=== PATIENT | male | born 1995 | race Two or more races ===

== ENCOUNTER 2021-10-01 19:21 | Emergency (ER) | payer SELFPAY ==
[~2021-10-01] VITALS: Ht 167.6 cm; Wt 75.0 kg
[2021-10-01 20:00] VITALS: BP 141/98
[2021-10-01] MEDS ORDERED: HYDROcodone/APAP 5/325MG 1 TAB TABLET PO ONE (21:00)
--- NOTE | 2021-10-01 21:40 | RAD ---
Exam: Right wrist 3 views INDICATION: Pain TECHNIQUE: Frontal, lateral and oblique views of the right wrist Comparisons: None FINDINGS: There is a fracture through the base of the scaphoid. Soft tissues are unremarkable. Joint spaces are well-maintained. Bone mineralization is normal. IMPRESSION: Minimally displaced fracture through the proximal pole of the scaphoid. Orthopedic consultation is re commended. Electronically signed by: Jaun Baker MD (10/01/2021 9:37 PM) MARÍA
--- NOTE | 2021-10-01 21:46 | RAD ---
Study: XR EXAM OF ANKLE_LEFT 3V Indication: Left ankle pain. Comparison: None. Findings: Mineralization at the tip of the medial malleolus is favored chronic. No acute fracture is identified at the ankle. Osteophytic proliferation at the anterior and posterior margins of the tibial plafond as well as at the dorsum of the talar neck. No osseous coalition. Intact talar dome. Symmetric ankle mortise. Maintained joint spaces. The small ankle joint effusion and/or synovitis. Impression: 1. No acute fracture is identified or traumatic malalignment. 2. Findings at the ankle and dorsum of the talar neck which could be in part related to remote trauma . Correlate for history of prior ankle injury. Electronically signed by: CARLOTA SY MD (10/01/2021 9:44 PM) [facility]
--- NOTE | 2021-10-01 22:31 | PHYS DOC ---
Past Medical History Past Surgical History: No Surgical History (PERI BARRERA APRN) Smoking Status: Never Smoker Alcohol Use: None (PERI BARRERA APRN) General Adult EDM: Chief Complaint: ANKLE PROBLEM HPI: HPI: Patient is a 26 year old male presents with left ankle pain and right wrist pain. Patient states he was playing soccer when a soccer ball pushed his right hand backwards. Patient reports twisting his left ankle. Denies taking anything for pain prior to arrival. Patient is able to bear weight. Range of motion intact but produces pain. Denies medical history. (PERI BARRERA APRN) Review of Systems: Review of Systems: ROS At least 10 ROS systems have been reviewed and are negative except as documented in the HPI. General: Negative except as outlined in HPI above. Skin: Negative except as outlined in HPI above. HEENT: Negative except as outlined in HPI above. Neck: Negative except as outlined in HPI above. Respiratory: Negative except as outlined in HPI above.. Cardiovascular: Negative except as outlined in HPI above. Abdomen: Negative except as outlined in HPI above. : Negative except as outlined in HPI above. Back/MSK: Negative except as outlined in HPI above. Neuro: Negative except as outlined in HPI above. Psych: Negative except as outlined in HPI above. (PERI BARRERA APRN) Heart Score: C/O Chest Pain: No Risk Factors: Risk Factors: DM, Current or recent (<one month) smoker, HTN, HLP, family history of CAD, obesity. Risk Scores: Score 0 - 3: 2.5% MACE over next 6 weeks - Discharge Home Score 4 - 6: 20.3% MACE over next 6 weeks - Admit for Clinical Observation Score 7 - 10: 72.7% MACE over next 6 weeks - Early Invasive Strategies (PERI BARRERA APRN) Current Medications: Current Medications Medications (Trade) Dose Ordered Sig/Jewell Start Time Stop Time Status Last Admin Dose Admin Acetaminophen/ Hydrocodone Bitart (Lortab 5/325) 1 tab 1X ONCE 10/01/21 21:00 10/01/21 21:01 DC 10/01/21 20:57 1 TAB (PERI BARRERA APRN) Allergies: Allergies: Allergies Coded Allergies Type Severity Reaction Last Updated Verified No Known Drug Allergies 10/01/21 No (PERI BARRERA APRN) Physical Exam: PE: Constitutional: Well developed, well nourished, no acute distress, non-toxic appearance. [] HENT: Normocephalic, atraumatic, bilateral external ears normal, oropharynx moist, no oral exudates, nose normal. [] Eyes: PERRLA, EOMI, conjunctiva normal, no discharge. [] Neck: Normal range of motion, no tenderness, supple, no stridor. [] Cardiovascular:Heart rate regular rhythm, no murmur [] Lungs & Thorax: Bilateral breath sounds clear to auscultation [] Abdomen: Bowel sounds normal, soft, no tenderness, no masses, no pulsatile ma sses. [] Skin: Warm, dry, no erythema, no rash. [] Back: No tenderness, no CVA tenderness. [] Extremities: No tenderness, no cyanosis, no clubbing, ROM intact, no edema. [] Neurologic: Alert and oriented X 3, normal motor function, normal sensory function, no focal deficits noted. [] Psychologic: Affect normal, judgement normal, mood normal. [] (PERI BARRERA APRN) Current Patient Data: Vital Signs: Vital Signs Date Time Temp Pulse Resp B/P (MAP) Pulse Ox O2 Delivery O2 Flow Rate FiO2 10/01/21 20:57 18 96 Room Air 10/01/21 20:00 98.2 66 141/98 (112) 98.2 (PERI BARRERA APRN) EKG: EKG: [] (PERI BARRERA APRN) Radiology/Procedures: Radiology/Procedures: []Study: XR EXAM OF ANKLE_LEFT 3V Indication: Left ankle pain. Comparison: None. Findings: Mineralization at the tip of the medial malleolus is favored chronic. No acute fracture is identified at the ankle. Osteophytic proliferation at the anterior and posterior margins of the tibial plafond as well as at the dorsum of the talar neck. No osseous coalition. Intact talar dome. Symmetric ankle mortise. Maintained joint spaces. The small ankle joint effusion and/or synovitis. Impression: 1. No acute fracture is identified or traumatic malalignment. 2. Findings at the ankle and dorsum of the talar neck which could be in part related to remote trauma. Correlate for history of prior ankle injury. Exam: Right wrist 3 views INDICATION: Pain TECHNIQUE: Frontal, lateral and oblique views of the right wrist Comparisons: None FINDINGS: There is a fracture through the base of the scaphoid. Soft tissues are unremarkable. Joint spaces are well-maintained. Bone mineralization is normal. IMPRESSION: Minimally displaced fracture through the proximal pole of the scaphoid. Orthopedic consultation is recommended. Electronically signed by: Jaun Baker MD (10/01/2021 9:37 PM) [facility] (EPRI BARRERA APRN) Course & Med Decision Making: Course & Med Decision Making Pertinent Labs and Imaging studies reviewed. (See chart for details) [] 26-year-old male presents with right wrist and left ankle pain after injuring himself playing soccer. Pain treated in the emergency room. Ankle x-ray is unremarkable. Imaging showed Minimally displaced fracture through the proximal pole of the scaphoid. Discussed results with patient. Thumb spica splint placed. Referral to Ortho given to patient. Rice instructions given. Motrin Tylenol for discomfort. (PERI BARRERA APRN) Course & Med Decision Making I was the Attending physician on the above date of service of this patient. This patient was evaluated, examined, treated, and dispositioned from the emergency department by the mid-level practitioner. Although I was working at the time , no assistance was requested. Electronically signed, Ely Bhagat DO (ELY BHAGAT DO) Joe Disclaimer: Joe Disclaimer: This electronic medical record was generated, in whole or in part, using a voice recognition dictation system. (PERI BARRERA APRN) Departure Departure Impression: Primary Impression: Wrist injury Qualified Codes: S69.91XA - Unspecified injury of right wrist, hand and finger(s), initial encounter Additional Impression: Ankle sprain Qualified Codes: S93.402A - Sprain of unspecified ligament of left ankle, initial encounter Disposition: HOME / SELF CARE / HOMELESS Condition: STABLE Referrals: NO PCP (PCP) Patient Instructions: Scaphoid Fracture, Wrist Additional Instructions: You are seen in the emergency room for wrist pain and ankle pain. You do have a fracture to your right wrist. Splint was placed. Giving you the phone number for orthopedics. Please make sure you follow-up tomorrow. Rest, ice, elevate help with pain and swelling. Ibuprofen at home. Return to emergency room for worsening symptoms or concerns. Ortho [address], [address] [place] [address] . EMERGENCY DEPARTMENT GENERAL DISCHARGE INSTRUCTIONS Thank you for coming to [facility] Emergency Department (ED) today and trusting us with you care. We trust that you had a positive experience in our Emergency Department. If you wish to speak to the department management, you may call the Director at [phone]. YOUR FOLLOW UP INSTRUCTIONS ARE FOLLOWS: 1. Do you have a private Doctor? If you do not have a private doctor, please ask for a resource list of physicians or clinics that may be able to assist you with fo llow up care. 2. The Emergency Physicain has interpreted your x-rays. The X-Ray specialist will also review them. If there is a change in the findings, you will be notified in 48 hours when at all possible. 3. A lab test or culture has been done, your results will be reviewed and you will be notified if you need a change in treatment. ADDITIONAL INSTRUCTIONS AND INFORMATION: 1. Your care today has been supervised by a physician who is specially trained in emergency care. Many problems require more than one evaluation for a complete diagnosis and treatment. We recommend that you schedule your follow up appointment as recommended to ensure complete treatment of you illness or injury. If you are unable to obtain follow up care and continue to have a problem, or if your condition worsens, we recommend that you return to the ED. 2. We are not able to safely determine your condition over the phone nor are we able to give sound medical advice over the phone. For these safety reasons, if you call for medical advice we will ask you to come to the ED for further evaluation. 3. If you have any questions regarding these discharge instructions please call the ED at [phone]. SAFETY INFORMATION: In the interest of safety, wellness, and injury prevention; we encourage you to wear your sealbelt, if you smoke; quite smoking, and we encourage family to use a protecti ve helmet for bicycling and other sporting events that present an increased risk for head injury. IF YOUR SYMPTOMS WORSEN OR NEW SYMPTOMS DEVELOP, OR YOU HAVE CONCERNS ABOUT YOUR CONDITION; OR IF YOUR CONDITION WORSENS WHILE YOU ARE WAITING FOR YOUR FOLLOW UP APPOINTMENT; EITHER CONTACT YOUR PRIMARY CARE DOCTOR, THE PHYSICIAN WHOSE NAME AND NUMBER YOU WERE GIVEN, OR RETURN TO THE ED IMMEDIATELY. PERI BARRERA APRN Oct 01, 2021 22:31 ELY BHAGAT DO Oct 06, 2021 06:09
== END 2021-10-01 23:15 | disposition home or self-care (01) ==
LOC: ER 19:21
DX: S93.402A Sprain of unspecified ligament of left ankle, initial encounter (principal); S69.91XA Unspecified injury of right wrist, hand and finger(s), initial encounter; X50.9XXA Other and unspecified overexertion or strenuous movements or postures, initial encounter; Y93.66 Activity, soccer; Y92.89 Other specified places as the place of occurrence of the external cause; Y99.8 Other external cause status
CPT/HCPCS: 29515; 73110; 73610; 99284